=== PATIENT | female | born 2005 | race Caucasian/White ===

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

== ENCOUNTER 2024-02-11 17:30 | Emergency (ER) | payer MEDICAID, SELFPAY ==
[2024-02-11 18:00] VITALS: BP 115/74; PULSE 66; RESP 16; TEMP 37; O2SAT 99; BMI 26.4
[2024-02-11 18:10] LABS: UTC Strep Screen (Rapid) Negative (Negative)
--- NOTE | 2024-02-11 18:29 | ED_ITS ---
Discharge Plan Disposition Patient Disposition: Home, Self-Care Condition: Good Prescriptions Prescriptions: New penicillin V potassium 500 mg tablet 500 mg PO BID Qty: 20 0RF No Action norethindrone-e.estradiol-iron [Loestrin Fe 1.5/30 (28-Day)] 1.5 mg-30 mcg (21)/75 mg (7) tablet 1 tab PO DAILY Qty: 84 6RF Referrals Follow up/Referrals: Chanda Meek PA [Primary Care Provider] - See instructions Activity Restrictions/Add. Instructions Additional Instructions/Restrictions: *Monitor Temp, Over the counter Motrin or Tylenol as directed/as needed Tylenol every 4 hours and Motrin every 6 hours (as long as your family doctor has told you that you can take it) for fever or pain. and straight to ER if unable to lower temp less than 101.0 after medication given *Warm salt water gargles may help to soothe the throat *Throat Lozenges? *Warm fluids like tea with honey may help to soothe the throat? *Sleep elevated *Humidifier/Vaporizer Your throat swab was sent for culture. Those results are typically sent to your primary care. Be sure to follow up in 2-3 days with your family doctor/primary care physician if no improvement so they can review those result and treat if necessary. If you don?t have a primary care doctor, I recommend you get one but in the mean time, you will have to return to a walk in clinic Follow up IMMEDIATELY for new or worsening symptoms or no Noticeable improvement over the next 48-72 hours. 911 for difficulty breathing or swallowing Clinical Impressions Clinical Impression: Pharyngitis Instructions Patient Instructions: Penicillin V Potassium, DI for Strep Throat Print Language Print Language: Hebrew Discharge ED Provider: Milka Alejo [facility] [place] HPI General Stated complaint: sore throat Mode of Arrival: Ambulatory Source of Information: Patient Limitations: No Limitations Time Seen by Provider: 02/11/24 18:29 Description of Symptoms (Recalled from Triage Doc. by RN): PATIENT C/O SORE, RED THROAT WITH WHITE PATCHES SINCE YESTERDAY HEENT Symptoms (Recalled from RN notes): Yes Resp Symptoms (Recalled from RN notes): No Skin Symptoms (Recalled from RN notes): No MS Symptoms (Recalled from RN notes): No Functional Status (Recalled from RN notes): WNL History of Present Illness Provider Complaint: Patient states that she started yesterday with sore throat and noticed that she has white patchy areas on her right side of her throat like she gets with strep throat Related Data Previous Rx's ?Medication ?Instructions ?Recorded norethindrone 1.5 mg-ethinyl 1 tab PO DAILY #84 tabs 08/15/23 estradiol 30 mcg(21)/iron 75 mg(7) tablet (Loestrin Fe 1.5/30 (28-Day)) penicillin V potassium 500 mg 500 mg PO BID #20 tabs 02/11/24 tablet Allergies Allergy/AdvReac Type Severity Reaction Status Date / Time No Known Allergies Allergy Verified 09/07/23 14:05 Worker's Comp Is this a Worker's Comp case?: No [facility] Disclaimer: The information contained in this section may have been updated after the patient was seen, as this information can be updated by other users. Medical History (Updated 02/11/24 @ 18:34 by Milka Alejo APRN) Depression Asthma Gastroesophageal reflux disease Anxiety Surgical History History of surgery on arm History of placement of ear tubes Hx of adenoidectomy Hx of eye surgery Family History , [employer]) No significant family history Social History , [employer]) Smoking Status: Never smoker alcohol intake: never substance use type: denies use current occupational status: employed and student household members: family housing: house ROS Obtained: Yes All systems reviewed & no additional complaints except as documented and Yes Systems reviewed as appropriate & no additional complaints except as documented Constitutional Constitutional: Reports system reviewed and no additional complaints, except as documented and Reports as per HPI ENT Ears, Nose, Mouth, and Throat: Reports system reviewed and no additional complaints, except as documented, Reports as per HPI and Reports sore throat Cardiovascular Cardiovascular: Reports system reviewed and no additional complaints, except as documented and Reports as per HPI Respiratory Respiratory: Reports system reviewed and no additional complaints, except as documented and Reports as per HPI Gastrointestinal Gastrointestingal: Reports system reviewed and no additional complaints, except as documented and as per HPI Physical Exam General General appearance: alert and in no apparent distress ENT ENT exam: Present mucous membranes moist Expanded ENT Exam Nose exam: Absent sinus tenderness Throat exam: Present tonsillar erythema and tonsillar exudate Respiratory Respiratory exam: Present normal lung sounds bilaterally; Absent respiratory distress or wheezes Cardiovascular Cardiovascular exam: Present regular rate, normal rhythm and normal heart sounds Neurological Exam Neurological exam: Present alert, oriented X3 and normal gait Medical Decision Making Medical Records Screening: Per USPSTF and CDC recommendations, given the prevalence of disease in our region, it is our hospital?s policy to screen for HIV and viral Hepatitis for all patients aged 18 and over and those with ongoing risk factors. El Inquiry Pt receiving controlled substance: No El was queried for this patient: No Vital Signs: 02/11/24 18:00 Temperature 98.6 F Temperature Source Oral Pulse Rate [Left Brachial] 66 Respiratory Rate 16 Blood Pressure [Left Arm] 115/74 Blood Pressure Mean [Left Arm] 87 Blood Pressure Source [Left Arm] Automatic Cuff Blood Pressure Position [Left Arm] Sitting 02 Sat by Pulse Oximetry 99 Oxygen Delivery Method Room Air Lab Data Lab results reviewed: Yes I reviewed the patient's lab results. Lab Results 02/11/24 18:00: Strep Scn Rapid Clinic Negative Orders (Tests/Meds): ORDERS Category Date Time Status Strep Screen Confirmation Stat Micro 02/11/24 18:00 Received
[2024-02-11 18:39] VITALS: BP 115/74; PULSE 66; RESP 16; TEMP 37; O2SAT 99
== END 2024-02-11 18:41 | disposition home or self-care (01) ==
PROVIDERS: Emergency Provider Nurse Practitioner; PCP Physician Assistant
DX: J02.9 Acute pharyngitis, unspecified (principal)
CPT/HCPCS: 87880; 99212; G0381

== ENCOUNTER 2024-03-16 08:47 | Emergency (ER) | payer MEDICAID, SELFPAY ==
[2024-03-16 09:30] VITALS: BP 104/62; PULSE 119; RESP 16; TEMP 38.1; O2SAT 99; BMI 26.6
[2024-03-16 09:56] LABS: UTC Strep Screen (Rapid) Negative (Negative)
[2024-03-16 09:57] LABS: UTC Influenza A Antigen Negative (Negative); UTC Influenza B Antigen Negative (Negative)
--- NOTE | 2024-03-16 09:57 | ED_ITS ---
Discharge Plan Disposition Patient Disposition: Home, Self-Care Condition: Good Prescriptions Prescriptions: No Action norethindrone-e.estradiol-iron [Loestrin Fe 1.5/30 (28-Day)] 1.5 mg-30 mcg (21)/75 mg (7) tablet 1 tab PO DAILY Qty: 84 6RF Referrals Follow up/Referrals: Chanda Meek PA [Primary Care Provider] - See instructions Activity Restrictions/Add. Instructions Additional Instructions/Restrictions: *Monitor Temp, Over the counter Motrin or Tylenol as directed/as needed Tylenol every 4 hours and Motrin every 6 hours (as long as your family doctor has told you that you can take it) for fever or pain. and straight to ER if unable to lower temp less than 101.0 after medication given *Warm salt water gargles may help to soothe the throat *Throat Lozenges? *Warm fluids like tea with honey may help to soothe the throat? *Sleep elevated *Humidifier/Vaporizer *Your throat swab was sent for culture. Those results are typically sent to your primary care. Be sure to follow up in 2-3 days with your family doctor/primary care physician if no improvement so they can review those result and treat if necessary. If you don?t have a primary care doctor, I recommend you get one but in the mean time, you will have to return to a walk in clinic Follow up IMMEDIATELY for new or worsening symptoms or no Noticeable improvement over the next 48-72 hours. 911 for difficulty breathing or swallowing You were tested for today for Mini Panel which includes COVID19, Influenza A & B, RhinoVirus and RSV your test result should be back later today, you may view your results on the [facility] Response [facility] Portal Clinical Impressions Clinical Impression: Viral syndrome Stand Alone Forms Stand Alone Forms: Work/School Release Instructions Patient Instructions: DI for Viral Syndrome Print Language Print Language: Romanian Discharge ED Provider: Milka Alejo [facility] HPI General Stated complaint: fever, headache Mode of Arrival: Ambulatory Source of Information: Patient Limitations: No Limitations Time Seen by Provider: 03/16/24 09:57 Description of Symptoms (Recalled from Triage Doc. 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 States that she started feeling bad yesterday with sore throat, body aches, chills, and over all not feeling well States that there is alot going around in the daycare and she wanted to come in and get checked Related Data Previous Rx's ?Medication ?Instructions ?Recorded norethindrone 1.5 mg-ethinyl 1 tab PO DAILY #84 tabs 08/15/23 estradiol 30 mcg(21)/iron 75 mg(7) tablet (Loestrin Fe 1.5/30 (28-Day)) Allergies Allergy/AdvReac Type Severity Reaction Status Date / Time No Known Allergies Allergy Verified 09/07/23 14:05 Worker's Comp Is this a Worker's Comp case?: No [facility]SH [facility] Disclaimer: The information contained in this section may have been updated after the patient was seen, as this information can be updated by other users. Medical History (Updated 03/16/24 @ 10:01 by Milka Alejo APRN) Depression Asthma Gastroesophageal reflux disease Anxiety Surgical History History of surgery on arm History of placement of ear tubes Hx of adenoidectomy Hx of eye surgery Family History , STREET LIGHT INSPECTOR) No significant family history Social History , STREET LIGHT INSPECTOR) Smoking Status: Never smoker alcohol intake: never substance use type: denies use current occupational status: employed and student Travel in the last 8 weeks: None household members: family housing: house Have you lived/traveled outside US in past 30 days?: No Contact w/someone who lives/traveled outside US past 30 days?: No Exposure to someone with infectious disease in past 14 days?: No Do you have a fever (greater than 100.4 F or 38 C)?: No Have you tested positive for COVID-19: No Exposed to someone with COVID-19 in past 14 days?: No Do you have a sore throat?: No Do you have a cough?: No Do you have any weakness?: No Do you have any diarrhea?: No Are you experiencing any unusual bleeding?: No Do you have any muscle aches/pain?: No Do you have any abdominal pain?: No Are you experiencing loss of taste or smell?: No ROS Obtained: Yes All systems reviewed & no additional complaints except as documented and Yes Systems reviewed as appropriate & no additional complaints except as documented Constitutional Constitutional: Reports system reviewed and no additional complaints, except as documented, Reports as per HPI, Reports body ache, Reports chills, Reports fever(s) and Reports headache(s) ENT Ears, Nose, Mouth, and Throat: Reports system reviewed and no additional complaints, except as documented, Reports as per HPI, Reports headache(s), Reports nasal congestion, Reports nasal discharge and Reports sore throat Cardiovascular Cardiovascular: Reports system reviewed and no additional complaints, except as documented and Reports as per HPI Respiratory Respiratory: Reports system reviewed and no additional complaints, except as documented and Reports as per HPI Gastrointestinal Gastrointestingal: Reports system reviewed and no additional complaints, except as documented and as per HPI Genitourinary Female Genitourinary: Reports system reviewed and no additional complaints, except as documented and Reports as per HPI Neurologic Neurologic: Reports headache(s) Physical Exam General General appearance: alert and in no apparent distress ENT ENT exam: Present mucous membranes moist and TM's normal bilaterally Expanded ENT Exam Nose exam: Present other (reports clear drainage) Throat exam: Present other (mild pharyngeal erythema noted) Respiratory Respiratory exam: Present normal lung sounds bilaterally; Absent respiratory distress or wheezes Cardiovascular Cardiovascular exam: Present regular rate, normal rhythm and normal heart sounds Abdominal Exam Abdominal exam: Present soft and normal bowel sounds; Absent distention or tenderness Neurological Exam Neurological exam: Present alert, oriented X3 and normal gait Medical Decision Making Medical Records Screening: Per USPSTF and CDC recommendations, given the prevalence of disease in our region, it is our hospital?s policy to screen for HIV and viral Hepatitis for all patients aged 18 and over and those with ongoing risk factors. El Inquiry Pt receiving controlled substance: No El was queried for this patient: No Vital Signs: 03/16/24 09:30 Temperature 100.6 F H Temperature Source Oral Pulse Rate [Left Brachial] 119 H Respiratory Rate 16 Blood Pressure [Left Arm] 104/62 L Blood Pressure Mean [Left Arm] 76 Blood Pressure Source [Left Arm] Automatic Cuff Blood Pressure Position [Left Arm] Sitting 02 Sat by Pulse Oximetry 99 Oxygen Delivery Method Room Air Lab Data Lab results reviewed: Yes I reviewed the patient's lab results. Lab Results 03/16/24 09:55: Strep Scn Rapid Clinic Negative Orders (Tests/Meds): ORDERS Category Date Time Status Mini Respiratory Panel Stat Lab 03/16/24 09:55 Ordered
[2024-03-16 10:03] VITALS: BP 104/62; PULSE 119; RESP 16; TEMP 38.1; O2SAT 99
[2024-03-16 10:29] LABS: Coronavirus 19, PCR Not Detected (NotDetected); Human Rhinovirus Not Detected (NotDetected); Influenza A, PCR Not Detected (NotDetected); Influenza B, PCR Not Detected (NotDetected); Respiratory Syncytial Virus Not Detected (NotDetected)
== END 2024-03-16 10:06 | disposition home or self-care (01) ==
PROVIDERS: Emergency Provider Nurse Practitioner; PCP Physician Assistant
DX: B34.9 Viral infection, unspecified (principal); R50.9 Fever, unspecified; R11.0 Nausea; R07.0 Pain in throat; R51.9 Headache, unspecified; R09.81 Nasal congestion
CPT/HCPCS: 87631; 87804; 87880; 99212; G0381

== ENCOUNTER 2024-06-25 13:22 | Outpatient (CLI) | payer BC, SELFPAY ==
[2024-06-25 15:31] LABS: HCG,Quantitative 244 mIU/ml (0-5.42)
[2024-06-26 04:26] LABS: Progesterone 24.3 ng/mL (.)
== END 2024-06-25 23:59 | disposition home or self-care (01) ==
LOC: LAB 13:23
PROVIDERS: Visit Provider Obstetrics & Gynecology
DX: Z32.01 Encounter for pregnancy test, result positive (principal)
CPT/HCPCS: 36415; 84144; 84702

== ENCOUNTER 2024-07-22 15:13 | Outpatient (CLI) | payer BC, SELFPAY ==
[2024-07-22 16:05] LABS: Basophils % 0.3 % (0.1-2.0); Eosinophils % 0.3 % (0.1-12.0); Hematocrit 37.3 % (37.0-47.0); Hemoglobin 12.9 g/dL (12.2-16.2); Immature Granulocytes # 0.02 10^3uL; Immature Granulocytes % 0.3 %; Lymphocytes # 1.7 K/mm3 (0.7-4.5); Lymphocytes % 22.2 % (10-50); Mean Corpuscular HGB Conc 34.6 g/dL (31.8-35.4); Mean Corpuscular Hemoglobin 28.9 pg (27.0-31.2); Mean Corpuscular Volume 83.4 fl (81-99); Mean Platelet Volume 8.6 fl (7.4-10.4); Monocytes # 0.4 K/mm3 (0.1-1.0); Monocytes % 5.7 % (1.7-9.3); Neutrophils # 5.6 K/mm3 (1.8-7.8); Neutrophils % 71.2 % (37.0-80.0); Nucleated Red Blood Cells # 0 10^3/uL; Nucleated Red Blood Cells % 0 %; Platelet Count 275 K/mm3 (142-424); Red Blood Count 4.47 M/mm3 (4.20-5.40); Red Cell Distribution Width 12.2 % (11.5-17.5); Red Cell Distribution Width-SD 37.1 fL; White Blood Count 7.8 K/mm3 (4.5-13.0)
[2024-07-22 19:56] LABS: HIV Combo NEGATIVE (Negative)
[2024-07-22 20:05] LABS: Hepatitis C Ab Qual. W/ RFX NEGATIVE (Negative)
[2024-07-23 00:24] LABS: RPR W/RFX Titers Nonreactive (Nonreactive)
[2024-07-23 05:08] LABS: Hepatitis B Surface Antigen Negative (Negative)
[2024-07-24 06:10] LABS: Neisseria gonorrhoeae, NAA Negative (Negative)
== END 2024-07-22 23:59 | disposition home or self-care (01) ==
LOC: LAB 15:14
PROVIDERS: Visit Provider Obstetrics & Gynecology
DX: Z34.01 Encounter for supervision of normal first pregnancy, first trimester (principal); Z3A.08 8 weeks gestation of pregnancy
CPT/HCPCS: 36415; 85025; 86592; 86762; 86803; 86850; 87340; 87389; 87491; 87591

== ENCOUNTER 2024-10-13 14:47 | Outpatient (CLI) | payer MEDICAID, SELFPAY ==
--- OUTSIDE RECORDS SUMMARY | 2024-10-13 14:49 | XMS_ITS | Encounter Summary ---
Author Organization Healthcare Address [address] [place] [address] Care Team Providers Care Belt Measurer Name Role Phone Chanda Meek Primary Care Provider [phone] Reason for Visit * Reason Comments Med Refill Encounter Details Date Type Department Care Team (Late st Contact Info) Description 09/02/2021 Refill [facility] Pediatric [facility] [address] [place] [address] Twila Obregon MD [address] [facility] [address] [place] [address] Social History Tobacco Use Types Packs/Day Years Used Date Smoking Tobacco: Never Smokeless Tobacco: Never Alcohol Use Standard Drinks/Week Comments No 0 (1 standard drink = 0.6 oz pure alcohol) Alcoholic Drinks/day: Never Drank Alcohol Comments Unknown Sex and Gender Information Value Date Recorded Sex Assigned at Not on file Legal Sex Female 6:34 PM EDT Gender Identity Not on file Sexual Orientation Not on file COVID-19 Exposure Response Date Recorded In the last 10 days, have yo u been in contact with someone who was confirmed or suspected to have Coronavirus/COVID-19? No / Unsure 08/22/2021 3:20 PM EDT documented as of this encounter Plan of Treatment Not on file documented as of this encounter Visit Diagnoses Not on filedocumented in this encounter Additional Health Concerns Assessment Noted Time A fall risk assessment has been complete d for the patient 08/22/2021 3:25 PM EDT documented as of this encounter Care Teams Belt Measurer Relationship Specialty Start Date End Date Chanda Meek PA [address] [place] [address] PCP - General 05/07/21 documented as of this encounter
--- OUTSIDE RECORDS SUMMARY | 2024-10-13 14:49 | XMS_ITS | Encounter Summary ---
Author Organization Healthcare Address [address] [id number] Care Team Providers Care Market Research Specialist Name Role Phone Chanda Meek Primary Care Provider [phone] Reason for Visit * Reason Comments Med Refill Encounter Details Date Type Department Care Team (Late st Contact Info) Description 09/05/2021 Refill [place] [facility] [address] [place] [address] Twila Obregon MD [address] [facility] [address] [place] [address] Social History Tobacco Use Types [...] documented as of this encounter Care Teams Market Research Specialist Relationship Specialty Start Date End Date Chanda Meek PA [address] [place], [place] [id number] PCP - General 05/07/21 documented as of this encounter
--- OUTSIDE RECORDS SUMMARY | 2024-10-13 14:49 | XMS_ITS | Encounter Summary ---
Author Organization [facility] Address [address] [id number] Care Team Providers Care Manager Beauty Name Role Phone Cherie Clarke DO Primary Care Provider [phone] Chanda Meek Primary Care Provider [phone] Reason for Referral * Consultation (Routine) - Closed Specialty Diagnoses / Procedures Referred By Contact Referred To Contact Pediatric Gastroenterology Diagnoses Nausea and vomiting, intractability of vomiting not specified, unspecified vomiting type Yovanny Lin APRN [address] [place] [address] Phone: tel:[phone] fax:[phone] Referral ID Status Reason Start Date Expiration Date V isits Requested Visits Authorized [id number] Closed Specialty Services Required 03/13/2021 09/12/2022 1 1 Encounter Details Date Type Department Care Team (Latest Contact Info) Description 03/12/2021 Community [facility] [address] [place] [address] Yovanny Lin APRN [address] [place] [address] Nausea and vomiting, intractability of vomiting not specified, unspecified vomiting type (Primary Dx) Social History Tobacco Use Types Packs/Day Years Used Date Smoking Tobacco: Never Alcohol Use Standard Drinks/Week Comments No 0 (1 standard drink = 0.6 oz pure alcohol) Alcoholic Drinks/day: Never Drank Alcohol Comments Unknown Sex and Gender Information Value Date Recorded Sex Assigned at Not on file Legal Sex Female 6:34 PM EDT Gender Identity Not on file Sexual Orientation Not on file documented as of this encounter Plan of Treatment Scheduled Referrals Name Type Priority Associated Diagnoses Orde r Schedule Ambulatory referral to Pediatric Gastroenterology Outpatient Referral Routine Nausea and vomiting, intractability of vomiting not specified, unspecified vomiting type Expected: 03/13/2021 (Approximate), Expires: 06/11/2021 documented as of this encounter Visit Diagnoses Diagnosis Nausea and vomiting, intractability of vomiting not specified, unspecified vomiting type- Primary documented in this encounter Care Teams Manager Beauty Relationship Specialty Start Date End Date Cherie Clarke DO [address] [facility] [address] [place], [place] [id number] PCP - General 07/28/20 05/06/21 Chanda Meek PA [address] [place] [address] PCP - General 05/07/21 documented as of this encounter
--- OUTSIDE RECORDS SUMMARY | 2024-10-13 14:49 | XMS_ITS | Encounter Summary ---
Author Organization Healthcare Address [address] [id number] Care Team Providers Care Black Top Spreader Machine Operator Name Role Phone Chanda Meek Primary Care Provider [phone] Reason for Visit * Reason Comments Med Refill Encounter Details Date Type Department Care Team (Late st Contact Info) Description 09/09/2022 Refill [place] [facility] Specialty [address], [address] [place] [address] Twila Obregon MD [address] [facility] [address] [place] [address] Social History Tobacco Use Types Packs/Day Years Used Date Smoking Tobacco: Never Smokeless Tobacco: Never Alcohol Use Standard Drinks/Week Comments No 0 (1 standard drink = 0.6 oz pure alcohol) Alcoholic Drinks/day: Never Drank Alcohol Comments No Sex and Gender Information Value Date Recorded Sex Assigned at Not on file Legal Sex Female 6:34 PM EDT Gender Identity Not on file Sexual Orientation Not on file documented as of this encounter Miscellaneous Notes * Telephone Encounter - Dewayne Lopez - 09/09/2022 1:59 PM EDT Refill request does not meet protocol. Sending to clinic for review. Additional info: Appointment compliance - PEDIATRIC Patient hasn't been seen in clinic in > 15 months. Please review for scheduling and if refills are appropriate. documented in this encounter Plan of Treatment Not on file documented as of this encounter Visit Diagnoses Not on filedocumented in this encounter Additional Health Concerns Assessment Noted Time A fall risk assessment has been complete d for the patient 08/22/2021 3:25 PM EDT documented as of this encounter Care Teams Black Top Spreader Machine Operator Relationship Specialty Start Date End Date Chanda Meek PA [address] [place] [address] PCP - General 05/07/21 documented as of this encounter
--- OUTSIDE RECORDS SUMMARY | 2024-10-13 14:49 | XMS_ITS | Clinical Summary ---
Author Organization Healthcare Address [address] [place] [address] Care Team Providers Care Paint Line Production Supervisor Name Role Phone Destinee Meekie Elisa OBRIEN Primary Care Provider [phone] Allergies No known active allergies Medications Melatonin 3 MG capsule TAKE 1 CAPSULE AT BEDTIME NEEDED. 9 Active Aviane 0.1-20 MG-MCG tablet Take 1 tablet by mouth 1 (one) time each day. 1 Active omeprazole (PriLOSEC) [address] capsule TAKE 1 CAPSULE BY MOUTH ONCE DAILY BEFORE BREAKFAST 90 capsule 1 2 Active Active Problems No known active problems Family History Medical History Relation Name Comments Thyroid disease Mother Gastritis Sister sees Dr. Cooper Relation Name Status Comments Mother Sister Social History Tobacco Use Types Packs/Day Years [...] on file Sexual Orientation Not on file Last Filed Vital Signs Vital Sign Reading Time Taken Comments Blood Pressure 106/71 11/13/2021 11:10 AM EDT Pulse 88 11/13/2021 11:10 AM EDT Temperature 36.6 C (97.8 F) 11/13/2021 10:40 AM EDT Respiratory Rate 19 11/13/2021 11:1 0 AM EDT Oxygen Saturation 98% 11/13/2021 11: 10 AM EDT Inhaled Oxygen Concentration - - Weight 62.1 kg (136 lb 14.5 oz) 11/13/2021 9:57 AM EDT Height 166 cm (5' 5.35 ) 11/13/2021 9:57 AM EDT Body Mass Index 22.54 11/13/2021 9:57 AM EDT Plan of Treatment Health Maintenance Due Date Last Done Comments [facility]-Depression Screening 2004 [facility]-HIV Screening 2004 [facility]-Hepatitis C Screening 2004 [facility]-Infant/Child/Adol SDOH Screenings 2004 [facility]- SDOH Screenings 2022 [facility]-Adult SDOH Screenings 2022 [id number] Vaccine ( season) 2023 [facility]-Influenza Vaccine (#1) 11/15/202412/14, 01/08/2008, 01/12/2007 [facility]-DTaP,Tdap,and Td Vaccines (2 - Td or Tdap) 04/25/2025 04/25/2015 [facility]-Zoster Vaccines (1 of 2) 2054 06/07/2013, 04/18/2005 [facility]-HIB Vaccines Completed 04/18/2005, 11/2004, 2004 [facility]-Hepatitis B Vaccines Completed 006, 2004, 2004 [facility]-IPV Vaccines Completed 04/18/2008, 12/2004, 2004, Additional history exists [facility]-Varicella Vaccines Completed 06/07/2013, 2005 [facility]-Hepatitis A Vaccines Completed 10/17/2017, 03/18 HPV Vaccines Completed 04/30/2019, 09/28/2018 [facility]-Pneumococcal Vaccine: Pediatrics (0 to 5 Years) and At-Risk Patients (6 to 49 Years) Aged Out No longer eligible based on patient's age to complete this topic [facility]-Rotavirus Vaccines Aged Out No lo nger eligible based on patient's age to complete this topic Insurance [employer] MEDICA[employer] Care Teams Paint Line Production Supervisor Relationship Specialty Start Date End Date Chanda Meek PA [address] [place] [address] PCP - General 05/07/21
--- NOTE | 2024-10-13 15:06 | US_ITS ---
PROCEDURE: US OB /MATERNAL DETAIL CLINICAL INDICATION: needs for 20 week anatomy scan COMPARISON: No exams were available for comparison FINDINGS: Transabdominal sonographic images of the pelvis were obtained. From her established due date she is 20 weeks 1 day. Single viable intrauterine gestation. Breech position. Placenta: Lateral posteriorplacenta grade 1. There is an average amount of fluid. The cervix appears satisfactory. Closed and measuring 3.23 cm cm in length. Complete survey performed and was unremarkable on the submitted images as in PACS. No discrete anomalies identified on survey imaging by technologist. Active fetus. Three-vessel cord with satisfactory umbilical cord insertion. 4- chamber heart noted. Situs, aortic arch, LVOT, RVOT, three-vessel view appear normal. Survey of brain & ventricles Unremarkable. Cerebellum, thalamus, choroid plexus, cisterna magna appear normal. Face and neck survey unremarkable. Profile, nasion, lips and nose appeared normal. Diaphragm and chest views unremarkable. Abdomen: Both kidneys noted and unremarkable. Stomach and bladder noted and satisfactory. Spine: Survey of the spine satisfactory with no anomalies identified nor imaged. Cervical, thoracic, lower spine appear normal. Both arms and legs noted. Amniotic Fluid: Adequate. MVP 3.96 cm Measurements: Average ultrasound age 20weeks 2days. Estimated due date by ultrasound age 1202/28/2025. Estimated weight 350g BPD = 20weeks 1day HC = 19weeks 6days AC = 20weeks 6days FL = 20weeks 1day Growth Percentile= 60 Heart Rate = 161bpm Cerebellum = 20weeks Humerus = 20weeks 3days HC/AC is 1.11 FL/BPD is 0.7 FL/AC is 0.21 IMPRESSION: 1. Viable fetus in the breech presentation with a lateral posterior placenta grade 1. 2. The fluid is within normal limits with an MVP 3.96 cm. 3. Anatomical scan appears normal. 4. biometry is consistent with the dates. Dictated by: William Mahmood MD 10/13/2024 16:21 William Mahmood MD in [place] 10/13/2024 16:21
== END 2024-10-13 23:59 | disposition home or self-care (01) ==
LOC: RAD 14:48
PROVIDERS: PCP Physician Assistant; Visit Provider Obstetrics & Gynecology
DX: O32.1XX0 Maternal care for breech presentation, not applicable or unspecified (principal); Z36.3 Encounter for antenatal screening for malformations; Z3A.20 20 weeks gestation of pregnancy
CPT/HCPCS: 76811

== ENCOUNTER 2024-12-03 08:51 | Outpatient (CLI) | payer MEDICAID, SELFPAY ==
--- OUTSIDE RECORDS SUMMARY | 2024-12-03 08:54 | XMS_ITS | Encounter Summary ---
Author Organization Healthcare Address [address] [id number] Care Team Providers Care Vp Compliance Name Role Phone Chanda Meek Primary Care Provider [phone] Reason for Visit * Reason Comments Med Refill Encounter Details Date Type Department Care Team (Late st Contact Info) Description 09/09/2022 Refill [place] [facility] [address], [address] [place] [address] Twila Obregon MD [address] [facility] [address] [place] [address] Social History Tobacco Use Types [...] documented as of this encounter Care Teams Vp Compliance Relationship Specialty Start Date End Date Chanda Meek PA [address] [place] [address] PCP - General 05/07/21 documented as of this encounter
--- OUTSIDE RECORDS SUMMARY | 2024-12-03 08:54 | XMS_ITS | Encounter Summary ---
Author Organization [facility] Address [address] [id number] Care Team Providers Care Magisterial District Judge Name Role Phone Cherie Clarke DO Primary Care Provider [phone] Chanda Meek Primary Care Provider [phone] Reason for Referral * Consultation (Routine) - Closed Specialty Diagnoses / Procedures Referred By Contact Referred To Contact Pediatric Gastroenterology Diagnoses Nausea and vomiting, intractability of vomiting not specified, unspecified vomiting type Yovanny Lin APRN [address] [place] [address] Phone: tel:[phone] fax:[phone] Referral ID Status Reason Start Date Expiration Date V isits Requested Visits Authorized [id number] Closed Specialty Services Required 03/13/2021 09/12/2022 1 1 Encounter Details Date Type Department Care Team (Latest Contact Info) Description 03/12/2021 Community [facility] [address] [place] [address] Yovanny Lin APRN [address] [place] [address] Nausea and vomiting, intractability of vomiting not [...] Primary documented in this encounter Care Teams Magisterial District Judge Relationship Specialty Start Date End Date Cherie Clarke DO [address] [facility] [address] [place], [place] [id number] PCP - General 07/28/20 05/06/21 Chanda Meek PA [address] [place] [address] PCP - General 05/07/21 documented as of this encounter
--- OUTSIDE RECORDS SUMMARY | 2024-12-03 08:54 | XMS_ITS | Encounter Summary ---
Author Organization Healthcare Address [address] [place] [address] Care Team Providers Care Head Start Teacher Name Role Phone Chanda Meek Primary Care Provider [phone] Reason for Visit * Reason Comments Med Refill Encounter Details Date Type Department Care Team (Late st Contact Info) Description 09/02/2021 Refill [facility] Pediatric [facility] [address] [place] [address] Twila Obregon MD [address] [facility] [address] [place] [address] Social History Tobacco Use Types [...] documented as of this encounter Care Teams Head Start Teacher Relationship Specialty Start Date End Date Chanda Meek PA [address] [place] [address] PCP - General 05/07/21 documented as of this encounter
--- OUTSIDE RECORDS SUMMARY | 2024-12-03 08:54 | XMS_ITS | Encounter Summary ---
Author Organization Healthcare Address [address] [id number] Care Team Providers Care Cannery Worker Name Role Phone Chanda Meek Primary Care Provider [phone] Reason for Visit * Reason Comments Med Refill Encounter Details Date Type Department Care Team (Late st Contact Info) Description 09/05/2021 Refill [place] [facility]ty [address] [place] [address] Twila Obregon MD [address] [facility] [address] [place] [address] Social History Tobacco Use Types [...] documented as of this encounter Care Teams Cannery Worker Relationship Specialty Start Date End Date Chanda Meek PA [address] [place], [place] [id number] PCP - General 05/07/21 documented as of this encounter
--- OUTSIDE RECORDS SUMMARY | 2024-12-03 08:54 | XMS_ITS | Clinical Summary ---
Author Organization Healthcare Address [address] [place] [address] Care Team Providers Care Telegraph Equipment Maintainer Name Role Phone Destinee Meekie Elisa OBRIEN Primary Care Provider [phone] Allergies No known active allergies Medications Melatonin [...] Date Last Done Comments [facility]-Depression Screening 2004 [facility]-/Child/Adol SDOH Screenings 2004 [facility]- SDOH Screenings 2022 [facility]-Adult SDOH Screenings 2022 [id number] Vaccine (1 - season) 2024 [facility]-Influenza Vaccine (#1) 11/15/202412/14, 01/08/2008, 01/12/2007 [facility]-DTaP,Tdap,and [...] patient's age to complete this topic Insurance [facility] MEDICAID Care Teams Telegraph Equipment Maintainer Relationship Specialty Start Date End Date Chanda Meek PA [address] [place] [address] PCP - General 05/07/21
[2024-12-03 10:13] LABS: Hematocrit 32.9 % (37.0-47.0); Hemoglobin 11.2 g/dL (12.2-16.2); Immature Granulocytes % 0.4 %; Mean Corpuscular HGB Conc 34.0 g/dL (31.8-35.4); Mean Corpuscular Hemoglobin 30.5 pg (27.0-31.2); Mean Corpuscular Volume 89.6 fl (81-99); Nucleated Red Blood Cells % 0 %; Platelet Count 219 K/mm3 (142-424); Red Blood Count 3.67 M/mm3 (4.20-5.40); Red Cell Distribution Width-SD 41.4 fL; White Blood Count 7.8 K/mm3 (4.5-13.0)
[2024-12-03 10:34] LABS: Glucose 1 Hour 125 mg/dL (74-100)
[2024-12-04 08:13] LABS: RPR W/RFX Titers Nonreactive (Nonreactive)
== END 2024-12-03 23:59 | disposition home or self-care (01) ==
LOC: LAB 08:52
PROVIDERS: PCP Physician Assistant; Visit Provider Obstetrics & Gynecology
DX: Z34.92 Encounter for supervision of normal pregnancy, unspecified, second trimester (principal)
CPT/HCPCS: 36415; 82947; 85025; 86592

== ENCOUNTER 2025-01-07 14:18 | Outpatient (CLI) | payer MEDICAID, SELFPAY ==
--- OUTSIDE RECORDS SUMMARY | 2025-01-07 14:20 | XMS_ITS | Encounter Summary ---
Author Organization [facility] Address [address] [id number] Care Team Providers Care Fittings Finisher Name Role Phone Cherie Clarke DO Primary Care Provider [phone] Chanda Meek Primary Care Provider [phone] Reason for Referral * Consultation (Routine) - Closed Specialty Diagnoses / Procedures Referred By Contact Referred To Contact Pediatric Gastroenterology Diagnoses Nausea and vomiting, intractability of vomiting not specified, unspecified vomiting type Yovanny Lin APRN [address] [place] [address] Phone: tel:[phone] fax:[phone] Referral ID Status Reason Start Date Expiration Date V isits Requested Visits Authorized [id number] Closed Specialty Services Required 03/13/2021 09/12/2022 1 1 Encounter Details Date Type Department Care Team (Latest Contact Info) Description 03/12/2021 Community [facility] [address] [place] [address] Yovanny Lin APRN [address] [place] [address] Nausea and vomiting, intractability of vomiting not [...] Primary documented in this encounter Care Teams Fittings Finisher Relationship Specialty Start Date End Date Cherie Clarke DO [address] [facility] [address] [place], [place] [id number] PCP - General 07/28/20 05/06/21 Chanda Meek PA [address] [place] [address] PCP - General 05/07/21 documented as of this encounter
--- OUTSIDE RECORDS SUMMARY | 2025-01-07 14:20 | XMS_ITS | Clinical Summary ---
Author Organization Healthcare Address [address] [place] [address] Care Team Providers Care Buckle Sewer Name Role Phone Destinee Meekie Elisa OBRIEN Primary Care Provider [phone] Allergies No known active allergies Medications Melatonin [...] SDOH Screenings 2022 [facility]-Adult SDOH Screenings 2022 [id number] Vaccine (1 - season) 2024 [facility]-Influenza Vaccine [...] patient's age to complete this topic Insurance [facility] MEDICAID Care Teams Buckle Sewer Relationship Specialty Start Date End Date Chanda Meek PA [address] [place] [address] PCP - General 05/07/21
--- OUTSIDE RECORDS SUMMARY | 2025-01-07 14:20 | XMS_ITS | Encounter Summary ---
Author Organization Healthcare Address [address] [id number] Care Team Providers Care Marketing Services Specialist Name Role Phone Chanda Meek Primary Care Provider [phone] Reason for Visit * Reason Comments Med Refill Encounter Details Date Type Department Care Team (Late st Contact Info) Description 09/05/2021 Refill [place] [facility] [address], [address] [place] [address] Twila Obregon MD [address] [facility] [address] [place] [address] Social History Tobacco Use Types [...] documented as of this encounter Care Teams Marketing Services Specialist Relationship Specialty Start Date End Date Chanda Meek PA [address] [place], [place] [id number] PCP - General 05/07/21 documented as of this encounter
--- OUTSIDE RECORDS SUMMARY | 2025-01-07 14:20 | XMS_ITS | Encounter Summary ---
Author Organization Healthcare Address [address] [place] [address] Care Team Providers Care Stationary Engineer Supervisor Name Role Phone Chanda Meek Primary Care Provider [phone] Reason for Visit * Reason Comments Med Refill Encounter Details Date Type Department Care Team (Late st Contact Info) Description 09/02/2021 Refill [facility] Pediatric [facility] [address] [place] [address] Twila Obregon MD [address] [facility] [address] [place] [address] Social History Tobacco Use Types [...] documented as of this encounter Care Teams Stationary Engineer Supervisor Relationship Specialty Start Date End Date Chanda Meek PA [address] [place] [address] PCP - General 05/07/21 documented as of this encounter
--- OUTSIDE RECORDS SUMMARY | 2025-01-07 14:20 | XMS_ITS | Encounter Summary ---
Author Organization Healthcare Address [address] [id number] Care Team Providers Care Sales Associate Fishing Name Role Phone Chanda Meek Primary Care Provider [phone] Reason for Visit * Reason Comments Med Refill Encounter Details Date Type Department Care Team (Late st Contact Info) Description 09/09/2022 Refill [place] [facility] [address], [address] [place] [address] Twila Obregon MD [address] [facility] [address] [place] [address] Social History Tobacco Use Types [...] documented as of this encounter Care Teams Sales Associate Fishing Relationship Specialty Start Date End Date Chanda Meek PA [address] [place] [address] PCP - General 05/07/21 documented as of this encounter
--- NOTE | 2025-01-07 14:30 | US_ITS ---
PROCEDURE: US OB BIOPHYSICAL PROFILE CLINICAL INDICATION: elevated BP COMPARISON: US US OB /MATERNAL DETAIL from 10/13/2024 FINDINGS: Transabdominal sonographic images of the uterus were obtained. From her established due date she is 32weeks 3days. The following parameters are obtained: Viable Fetus in the cephalic presentation with a posterolateral placenta grade 2. Average ultrasound age is 34weeks 0 days Estimated weight 2,234g, 4 lb 15 oz The cervix measures 3.51 cm in length. Measurements: heart Rate = 142bpm BPD = 33weeks 6days, 81 percentile HC = 34weeks 4days, 70 percentile AC = 33weeks 0 days, 65 percentile FL = 34weeks 3days, 86 percentile HC/AC is 1.07 FL/BPD is 0.8 FL/AC is 0.23 77 percentile Amniotic fluid index: 12.93cm, MVP 4.16 cm Qualitative AFV:2 Breathing movements: 2 Gross Body Movements: 2 Tone: 2 Biophysical profile score: 8 No obvious anomalies evident.Kidneys, profile, stomach, bladder, four-chamber heart, three-vessel cord appear normal. IMPRESSION: 1. Viable fetus in the cephalic presentation with a posterolateral placenta grade 2. 2. The fluid is within normal limits with an amniotic fluid index 12.93 cm, MVP 4.16 cm. 3. Biophysical profile is 8/8 with good breathing movement and movement seen. 4. Limited anatomical scan appears normal. Dictated by: William Mahmood MD 01/08/2025 09:22 William Mahmood MD in [place] 01/08/2025 09:22
== END 2025-01-07 23:59 | disposition home or self-care (01) ==
LOC: RAD 14:18
PROVIDERS: PCP Physician Assistant; Visit Provider Obstetrics & Gynecology
DX: Z34.83 Encounter for supervision of other normal pregnancy, third trimester (principal); R03.0 Elevated blood-pressure reading, without diagnosis of hypertension; Z3A.32 32 weeks gestation of pregnancy
CPT/HCPCS: 76816; 76819

== ENCOUNTER 2025-01-31 16:29 | Outpatient (CLI) | payer MEDICAID, SELFPAY ==
[2025-01-31 16:39] VITALS: BMI 30.1
[2025-01-31 16:54] VITALS: BP 140/85; PULSE 105; RESP 17; TEMP 36.6; O2SAT 97; BMI 30.1
[2025-01-31 17:15] LABS: Microscopic, Urine URINE MICROSCOPIC (MICROSCOPIC)
[2025-01-31 17:24] LABS: Bilirubin,Urine Negative (Negative); Color,Urine YELLOW (Yellow); Glucose,Urine (UA) Negative (Negative); Ketones,Urine Negative (Negative); Leukocyte Esterase,Urine 3+ (Negative); PH,Urine 6.5 (5.0-8.5); Protein,Urine Negative (Negative); Specific Gravity, Urine <= 1.005 (1.005-1.030); Urobilinogen,Urine 0.2 EU/dl (0.2)
[2025-01-31 17:24] LABS: Fetal Membrane Rupture (Rapid) Negative (Negative)
[2025-01-31 17:40] LABS: Bacteria,Urine 2+ /lpf
[2025-01-31 18:00] VITALS: BP 115/75
--- OUTSIDE RECORDS SUMMARY | 2025-02-01 00:12 | XMS_ITS | Encounter Summary ---
Author Organization [facility] Address [address] [id number] Care Team Providers Care Button Decorating Machine Operator Name Role Phone Cherie Clarke DO Primary Care Provider [phone] Chanda Meek Primary Care Provider [phone] Reason for Referral * Consultation (Routine) - Closed Specialty Diagnoses / Procedures Referred By Contact Referred To Contact Pediatric Gastroenterology Diagnoses Nausea and vomiting, intractability of vomiting not specified, unspecified vomiting type Yovanny Lin APRN [address] [place] [address] Phone: tel:[phone] fax:[phone] Referral ID Status Reason Start Date Expiration Date V isits Requested Visits Authorized [id number] Closed Specialty Services Required 03/13/2021 09/12/2022 1 1 Encounter Details Date Type Department Care Team (Latest Contact Info) Description 03/12/2021 Community [facility] [address] [place] [address] Yovanny Lin APRN [address] [place] [address] Nausea and vomiting, intractability of vomiting not [...] Primary documented in this encounter Care Teams Button Decorating Machine Operator Relationship Specialty Start Date End Date Cherie Clarke DO [address] [facility] [address] [place], [place] [id number] PCP - General 07/28/20 05/06/21 Chanda Meek PA [address] [place] [address] PCP - General 05/07/21 documented as of this encounter
--- OUTSIDE RECORDS SUMMARY | 2025-02-01 00:12 | XMS_ITS | Encounter Summary ---
Author Organization Healthcare Address [address] [id number] Care Team Providers Care Chemical Dependency Professional Name Role Phone Chanda Meek Primary Care Provider [phone] Reason for Visit * Reason Comments Med Refill Encounter Details Date Type Department Care Team (Late st Contact Info) Description 09/09/2022 Refill [facility] [facility] [address], [address] [place] [address] Twila Obregon MD [address] [facility] [address] [place] [address] Social History Tobacco Use Types [...] documented as of this encounter Care Teams Chemical Dependency Professional Relationship Specialty Start Date End Date Chanda Meek PA [address] [place] [address] PCP - General 05/07/21 documented as of this encounter
--- OUTSIDE RECORDS SUMMARY | 2025-02-01 00:13 | XMS_ITS | Clinical Summary ---
Author Organization Healthcare Address [address] [place] [address] Care Team Providers Care Plate Setter Name Role Phone Destinee Meekie Elisa OBRIEN Primary Care Provider [phone] Allergies No known active allergies Medications Melatonin [...] Date Last Done Comments [facility]-Depression Screening 2004 [facility]-Infant/Child/Adol SDOH Screenings 2004 [facility]- SDOH Screenings 2022 [facility]-Adult SDOH Screenings 2022 [id number] Vaccine (1 - 2024- season) 2024 [facility]-Influenza Vaccine (#1) 11/15/202412/14, 01/08/2008, [...] patient's age to complete this topic Insurance [facility] MEDICAID Care Teams Plate Setter Relationship Specialty Start Date End Date Chanda Meek PA [address] [place] [address] PCP - General 05/07/21
--- OUTSIDE RECORDS SUMMARY | 2025-02-01 00:13 | XMS_ITS | Encounter Summary ---
Author Organization Healthcare Address [address] [id number] Care Team Providers Care Loss Prevention Detective Name Role Phone Chanda Meek Primary Care Provider [phone] Reason for Visit * Reason Comments Med Refill Encounter Details Date Type Department Care Team (Late st Contact Info) Description 09/05/2021 Refill [place] [facility] [address], [address] [place] [address] Twila Obregon MD [address] [facility] [address] [place] [address] Social History Tobacco Use Types [...] documented as of this encounter Care Teams Loss Prevention Detective Relationship Specialty Start Date End Date Chanda Meek PA [address] [place], [place] [id number] PCP - General 05/07/21 documented as of this encounter
--- OUTSIDE RECORDS SUMMARY | 2025-02-01 00:14 | XMS_ITS | Encounter Summary ---
Author Organization Healthcare Address [address] [place] [address] Care Team Providers Care Police Inspector Name Role Phone Chanda Meek Primary Care Provider [phone] Reason for Visit * Reason Comments Med Refill Encounter Details Date Type Department Care Team (Late st Contact Info) Description 09/02/2021 Refill [facility] Pediatric [facility] [address] [place] [address] Twila Obregon MD [address] [facility] [address] [place] [address] Social History [...] documented as of this encounter Care Teams Police Inspector Relationship Specialty Start Date End Date Chanda Meek PA [address] [place] [address] PCP - General 05/07/21 documented as of this encounter
== END 2025-01-31 18:39 | disposition home or self-care (01) ==
LOC: OBOUT 16:32 → OB 16:33
PROVIDERS: PCP Physician Assistant; Visit Provider Nurse Practitioner Obstetrics & Gynecology
DX: Z34.03 Encounter for supervision of normal first pregnancy, third trimester (principal); Z3A.35 35 weeks gestation of pregnancy
CPT/HCPCS: 81001; 84112; 87086; 99213; J0696

== ENCOUNTER 2025-02-03 14:30 | Outpatient (CLI) | payer MEDICAID, SELFPAY ==
--- OUTSIDE RECORDS SUMMARY | 2025-02-04 13:39 | XMS_ITS | Encounter Summary ---
Author Organization Healthcare Address [address] [place] [address] Care Team Providers Care Outside Event Sales Specialist Name Role Phone Chanda Meek Primary Care Provider [phone] Reason for Visit * Reason Comments Med Refill Encounter Details Date Type Department Care Team (Late st Contact Info) Description 09/02/2021 Refill [facility] Pediatric [facility] [address] [place] [address] Twila Obregon MD [address] [facility] [address] [place] [address] Social History Tobacco Use Types [...] documented as of this encounter Care Teams Outside Event Sales Specialist Relationship Specialty Start Date End Date Chanda Meek PA [address] [place] [address] PCP - General 05/07/21 documented as of this encounter
--- OUTSIDE RECORDS SUMMARY | 2025-02-04 13:39 | XMS_ITS | Encounter Summary ---
Author Organization Healthcare Address [address] [id number] Care Team Providers Care Vessel Manager Name Role Phone Chanda Meek Primary Care Provider [phone] Reason for Visit * Reason Comments Med Refill Encounter Details Date Type Department Care Team (Late st Contact Info) Description 09/09/2022 Refill [place] [facility] [address], [address] [place] [address] Twila Obregon MD [address] [facility] [address] [place] [address] Social History Tobacco Use Types [...] documented as of this encounter Care Teams Vessel Manager Relationship Specialty Start Date End Date Chanda Meek PA [address] [place] [address] PCP - General 05/07/21 documented as of this encounter
--- OUTSIDE RECORDS SUMMARY | 2025-02-04 13:39 | XMS_ITS | Clinical Summary ---
Author Organization Healthcare Address [address] [place] [address] Care Team Providers Care Superintendent Electric Power Name Role Phone Destinee Meekie Elisa OBRIEN Primary Care Provider [phone] Allergies No known active allergies Medications Melatonin [...] Thyroid disease Mother Gastritis Sister sees Dr. oCoper Relation Name Status Comments Mother Sister Social [...] SDOH Screenings 2022 [facility]-Adult SDOH Screenings 2022 [id number] Vaccine (1 - 2024- season) 2024 [facility]-Influenza [...] patient's age to complete this topic Insurance [facility] MEDICAID Care Teams Superintendent Electric Power Relationship Specialty Start Date End Date Chanda Meek PA [address] [place] [address] PCP - General 05/07/21
--- OUTSIDE RECORDS SUMMARY | 2025-02-04 13:39 | XMS_ITS | Encounter Summary ---
Author Organization Healthcare Address [address] [id number] Care Team Providers Care Dowel Machine Operator Name Role Phone Chanda Meek Primary Care Provider [phone] Reason for Visit * Reason Comments Med Refill Encounter Details Date Type Department Care Team (Late st Contact Info) Description 09/05/2021 Refill [place] [facility] [address], [address] [place] [address] Twila Obregon MD [address] [facility] [address] [place] [address] Social History Tobacco Use Types [...] documented as of this encounter Care Teams Dowel Machine Operator Relationship Specialty Start Date End Date Chanda Meek PA [address] [place], [place] [address] PCP - General 05/07/21 documented as of this encounter
--- OUTSIDE RECORDS SUMMARY | 2025-02-04 13:39 | XMS_ITS | Encounter Summary ---
Author Organization [facility] Address [address] [id number] Care Team Providers Care Supervisor Paint Department Name Role Phone Cherie Clarke DO Primary Care Provider [phone] Chanda Meek Primary Care Provider [phone] Reason for Referral * Consultation (Routine) - Closed Specialty Diagnoses / Procedures Referred By Contact Referred To Contact Pediatric Gastroenterology Diagnoses Nausea and vomiting, intractability of vomiting not specified, unspecified vomiting type Yovanny Lin APRN [address] [place] [address] Phone: tel:[phone] fax:[phone] Referral ID Status Reason Start Date Expiration Date V isits Requested Visits Authorized [id number] Closed Specialty Services Required 03/13/2021 09/12/2022 1 1 Encounter Details Date Type Department Care Team (Latest Contact Info) Description 03/12/2021 Community [facility] Community Practice [address] [place] [address] Yovanny Lin APRN [address] [place] [address] Nausea and vomiting, intractability of vomiting not [...] Primary documented in this encounter Care Teams Supervisor Paint Department Relationship Specialty Start Date End Date Cherie Clarke DO 1210 [facility] [address] [place], [place] [id number] PCP - General 07/28/20 05/06/21 Chanda Meek PA [address] [place] [address] PCP - General 05/07/21 documented as of this encounter
== END 2025-02-03 23:59 | disposition home or self-care (01) ==
LOC: LAB.DROPOF 02-04 13:34
PROVIDERS: PCP Physician Assistant; Visit Provider Obstetrics & Gynecology
DX: O99.891 Other specified diseases and conditions complicating pregnancy (principal); R03.0 Elevated blood-pressure reading, without diagnosis of hypertension; Z3A.00 Weeks of gestation of pregnancy not specified
CPT/HCPCS: 86403

== ENCOUNTER 2025-02-09 14:20 | Outpatient (CLI) | payer MEDICAID, SELFPAY ==
--- OUTSIDE RECORDS SUMMARY | 2025-02-09 14:21 | XMS_ITS | Encounter Summary ---
Author Organization [facility] Address [address] [id number] Care Team Providers Care Stack Matcher Name Role Phone Cherie Clarke DO Primary Care Provider [phone] Chanda Meek Primary Care Provider [phone] Reason for Referral * Consultation (Routine) - Closed Specialty Diagnoses / Procedures Referred By Contact Referred To Contact Pediatric Gastroenterology Diagnoses Nausea and vomiting, intractability of vomiting not specified, unspecified vomiting type Yovanny Lin APRN [address] [place] [address] Phone: tel:[phone] fax:[phone] Referral ID Status Reason Start Date Expiration Date V isits Requested Visits Authorized [id number] Closed Specialty Services Required 03/13/2021 09/12/2022 1 1 Encounter Details Date Type Department Care Team (Latest Contact Info) Description 03/12/2021 Community [facility] Community Practice [address] [place] [address] Yovanny Lin APRN [address] [place] [address] Nausea and vomiting, intractability of vomiting not [...] Primary documented in this encounter Care Teams Stack Matcher Relationship Specialty Start Date End Date Cherie Clarke DO 1210 [facility] [address] [place], [place] [address] PCP - General 07/28/20 05/06/21 Chanda Meek PA [address] [place] [address] PCP - General 05/07/21 documented as of this encounter
--- OUTSIDE RECORDS SUMMARY | 2025-02-09 14:21 | XMS_ITS | Encounter Summary ---
Author Organization Healthcare Address [address] [id number] Care Team Providers Care Door Cutter Name Role Phone Chanda Meek Primary Care Provider [phone] Reason for Visit * Reason Comments Med Refill Encounter Details Date Type Department Care Team (Late st Contact Info) Description 09/09/2022 Refill [facility] [address], [address] [place] [address] Twila Obregon MD [address] [facility] [address] [place] [address] Social History Tobacco Use Types [...] documented as of this encounter Care Teams Door Cutter Relationship Specialty Start Date End Date Chanda Meek PA [address] [place] [address] PCP - General 05/07/21 documented as of this encounter
--- OUTSIDE RECORDS SUMMARY | 2025-02-09 14:22 | XMS_ITS | Encounter Summary ---
Author Organization Healthcare Address [address] [place] [address] Care Team Providers Care Knit Goods Cutter Hand Name Role Phone Chanda Meek Primary Care Provider Reason for Visit * Reason Comments Med Refill Encounter Details Date Type Department Care Team (Late st Contact Info) Description 09/02/2021 Refill [facility] Pediatric [facility] [address] [place] [address] Twila Obregon MD [address] [facility] [address] [place] [address] Social History Tobacco Use Types [...] documented as of this encounter Care Teams Knit Goods Cutter Hand Relationship Specialty Start Date End Date Chanda Meek PA [address] [place] [address] PCP - General 05/07/21 documented as of this encounter
--- OUTSIDE RECORDS SUMMARY | 2025-02-09 14:22 | XMS_ITS | Encounter Summary ---
Author Organization Healthcare Address [address] [id number] Care Team Providers Care Automatic Screwmaker Name Role Phone Chanda Meek Primary Care Provider [phone] Reason for Visit * Reason Comments Med Refill Encounter Details Date Type Department Care Team (Late st Contact Info) Description 09/05/2021 Refill [place] [facility] [address], [address] [place] [address] Twila Obregon MD [address] [facility] [address] [place] [address] Social History Tobacco Use Types [...] documented as of this encounter Care Teams Automatic Screwmaker Relationship Specialty Start Date End Date Chanda Meek PA [address] [place], [place] [address] PCP - General 05/07/21 documented as of this encounter
--- OUTSIDE RECORDS SUMMARY | 2025-02-09 14:22 | XMS_ITS | Clinical Summary ---
Author Organization Healthcare Address [address] [place] [address] Care Team Providers Care Senior Product Engineer Name Role Phone Destinee Meekie Elisa OBRIEN Primary Care Provider [phone] Allergies No known active allergies Medications Melatonin [...] SDOH Screenings 2022 [facility]-Adult SDOH Screenings 2022 [id number] Vaccine (1 - 2024- season) 2024 [facility]-Influenza [...] patient's age to complete this topic Insurance [facility] MEDICAID Care Teams Senior Product Engineer Relationship Specialty Start Date End Date Chanda Meek PA [address] [place] [address] PCP - General 05/07/21
--- NOTE | 2025-02-09 14:30 | US_ITS ---
PROCEDURE: US OB FOLLOW UP CLINICAL INDICATION: growth COMPARISON: US US OB /MATERNAL DETAIL from 10/13/2024 US US OB BIOPHYSICAL PROFILE from 01/07/2025 FINDINGS: Transabdominal sonographic images of the pelvis were obtained. The following parameters are obtained: From her established due date she is 37weeks 1day Viable fetus in the cephalic presentation with a right lateral posterior placenta grade 2. The cervix measures 4.19 cm in length heart rate: 144bpm bpm. Average ultrasound age 38 weeks 0 days Estimated weight 3306 grams, 7 lb 5 oz BPD: 37weeks 4days, 75 percentile HC: 39weeks 0 days, 67 percentile AC: 38weeks 0 days, 83 percent FL: 37weeks 2days, 51 percent HC/AC: 1 FL/BPD: 0.79 FL/AC: 0.21 Growth percentile: 74 Amniotic fluid: MVP 4.46 cm No obvious anomalies evident. Stomach, bladder, kidneys, three-vessel cord, four chamber heart appear normal. IMPRESSION: 1. Viable fetus in the cephalic presentation with a right lateral posterior placenta grade 2. 2. Fluid is within normal limits with an MVP 4.46 cm. 3. There has been good interval growth with the fetus currently 74th percentile. 4. Limited anatomical scan appears normal. Dictated by: William Mahmood MD 02/09/2025 16:39 William Mahmood MD in [facility] 02/09/2025 16:39
== END 2025-02-09 23:59 | disposition home or self-care (01) ==
LOC: RAD 14:20
PROVIDERS: PCP Physician Assistant; Visit Provider Obstetrics & Gynecology
DX: O36.63X0 Maternal care for excessive fetal growth, third trimester, not applicable or unspecified (principal); Z3A.37 37 weeks gestation of pregnancy
CPT/HCPCS: 76816

== ENCOUNTER 2025-02-22 14:11 | Inpatient (IN) | payer MEDICAID, SELFPAY ==
[2025-02-21 17:58] LABS: Hematocrit 30.1 % (37.0-47.0); Hemoglobin 10.0 g/dL (12.2-16.2); Immature Granulocytes % 0.3 %; Mean Corpuscular HGB Conc 33.2 g/dL (31.8-35.4); Mean Corpuscular Hemoglobin 28.2 pg (27.0-31.2); Mean Corpuscular Volume 85.0 fl (81-99); Nucleated Red Blood Cells % 0 %; Platelet Count 173 K/mm3 (142-424); Red Blood Count 3.54 M/mm3 (4.20-5.40); Red Cell Distribution Width-SD 38.4 fL; White Blood Count 7.5 K/mm3 (4.5-13.0)
[2025-02-21 18:19] VITALS: BP 132/83; PULSE 77; RESP 18; TEMP 36.9; O2SAT 99; BMI 30.4
[2025-02-21 20:19] LABS: Microscopic, Urine URINE MICROSCOPIC (MICROSCOPIC)
[2025-02-21 20:44] LABS: Bilirubin,Urine Negative (Negative); Color,Urine YELLOW (Yellow); Glucose,Urine (UA) Negative (Negative); Ketones,Urine Negative (Negative); Leukocyte Esterase,Urine 3+ (Negative); PH,Urine 7.0 (5.0-8.5); Protein,Urine Negative (Negative); Specific Gravity, Urine 1.015 (1.005-1.030); Urobilinogen,Urine 0.2 EU/dl (0.2)
[2025-02-21 21:25] LABS: Bacteria,Urine 3+ /lpf
[2025-02-22] MEDS: DEXTROSE 5%-LACTATED RINGERS 1,000 ML 125 ML IV ×2 (06:38→14:10)
[2025-02-22] MEDS: OXYTOCIN/RINGERS LACTATE 30 UNITS/500 ML BAG IV (06:39)
[2025-02-22 08:16] VITALS: BP 141/84; PULSE 95; RESP 16; TEMP 36.8; O2SAT 95
--- NOTE | 2025-02-22 09:36 | EXP.HP ---
History of Present Illness *Admission Date: 02/21/25 *Reason for visit:: induction *History of present illness: Marija Bravo is a very pleasant 19-year-old G1, P0 who presents today for an elective induction of labor. Her has been relatively uncomplicated. On arrival she endorses good movement, denies any contractions, leakage of fluid, or vaginal bleeding. She received Cytotec overnight. She is currently on Pitocin and doing very well. Reports that she desires an epidural A+, antibody negative, rubella immune, hepatitis B negative, hepatitis C negative, RPR negative, HIV negative 1 hour GTT: 125 GBS negative PFSH PFS Disclaimer: The information contained in this section may have been updated after the patient was seen, as this information can be updated by other users. Medical History Large for gestational age fetus affecting management of mother Depression Asthma Gastroesophageal reflux disease Anxiety Surgical History History of surgery on arm History of placement of ear tubes Hx of adenoidectomy Hx of eye surgery Family History Other No significant family history Social History Smoking Status: Never smoker alcohol intake: never substance use type: denies use current occupational status: employed Travel in the last 8 weeks?: None household members: family housing: house Have you lived/traveled outside US in past 30 days?: No Contact w/someone who lives/traveled outside US past 30 days?: No Exposure to someone with infectious disease in past 14 days?: No Do you have a fever (greater than 100.4 F or 38 C)?: No Have you tested positive for COVID-19?: No Exposed to someone with COVID-19 in past 14 days?: No Do you have a sore throat?: No Do you have a cough?: No Do you have any weakness?: No Do you have any diarrhea?: No Are you experiencing any unusual bleeding?: No Do you have any muscle aches/pain?: No Do you have any abdominal pain?: No Are you experiencing loss of taste or smell?: No Other Medical History Have you received the Flu Vaccine for this season: No Have you received the Pneumonia Vaccine: No Review of Systems Review of Systems Review of systems (narrative): Review of Systems Constitutional: Denies fever, chills, and sweats Eyes: Denies vision change/ pain Respiratory: Denies cough and shortness of breath Cardiovascular: Denies chest pain and lightheadedness Gastrointestinal: Admits abdominal pain with contractions. Denies nausea, vomiting. Genitourinary: Denies dysuria and incontinence Musculoskeletal: Denies shoulder pain and back pain Neurological: Denies change in speech or headaches Meds Home Medications and Allergies Home Medications ?Medication ?Instructions ?Recorded ?Confirmed ?Type vits no.126-ferrous fum tab PO 07/22/24 02/15/25 History 28 mg iron-folic acid 800 mcg tablet (Classic ) ondansetron 4 mg disintegrating 4 mg PO Q8H PRN nausea and 08/19/24 02/15/25 Rx tablet vomiting #90 tabs New Prescriptions to Start Prescriptions: Allergies Allergy/AdvReac Type Severity Reaction Status Date / Time No Known Allergies Allergy Verified 02/15/25 08:58 Exam Data for Last 24 hours Vital signs and Labs for Last 24 Hours: Temp Pulse Resp BP Pulse Ox O2 Del Method 98.5 F 77 18 132/83 99 Room Air 02/21/25 18:19 02/21/25 18:19 02/21/25 18:19 02/21/25 18:19 02/21/25 18:19 02/21/25 18:19 Laboratory Results - last 24 hr 02/21/25 17:43: WBC 7.5, RBC 3.54 L, Hgb 10.0 L, Hct 30.1 L, MCV 85.0, MCH 28.2, MCHC 33.2, RDW 12.7, Plt Count 173, MPV 9.8, Neut % (Auto) 72.7, Lymph % (Auto) 21.6, [place] % (Auto) 5.1, Eos % (Auto) 0.0 L, Baso % (Auto) 0.3, Neut # (Auto) 5.5, Lymph # (Auto) 1.6, [place] # (Auto) 0.4, Eos # (Auto) 0.0, Baso # (Auto) 0.0, Blood Type A Positive, Antibody Screen Negative 02/21/25 17:58: Urine Color Yellow, Urine Appearance Clear, Urine pH 7.0, Ur Specific [place] 1.015, Urine Protein Negative, Urine Glucose (UA) Negative, Urine Ketones Negative, Urine Blood Negative, Urine Nitrate Negative, Urine Bilirubin Negative, Urine Urobilinogen 0.2, Ur Leukocyte Esterase 3+ A, Urine RBC None, Urine WBC 10-20, Ur Squamous Epith Cells 10-20, Urine Bacteria 3+ I & O for Last 24 hours: Intake & Output 02/19/25 02/20/25 02/21/25 02/22/25 23:59 23:59 23:59 23:59 Weight 183 lb Narrative: General: patient is alert oriented in no acute distress and responds appropriately to questions. HEENT: NCAT, EOMI, moist mucous membranes, neck supple with full ROM Cardiovascular: RRR +S1/S2, no murmurs or rubs Pulmonary: Clear to auscultation bilaterally, nonlabored breathing, symmetric chest rise Abdominal: Gravid abdomen appropriate for gestation. No guarding, rebound, or tenderness noted. Extremities: trace edema, no tenderness or cyanosis noted Skin: Normal turgor, intact, warm. Negative for erythema, pallor, petechia, or lesions Neurologic: Negative for sensory or motor deficit Psychiatric: Normal affect, normal thought process, good judgment and insight, no depression or anxious mood appreciated. *Routine HEENT Exam Head: Present normocephalic and atraumatic Eye: Present EOMI, PERRL and normal accommodation; Absent conjunctival icterus, scleral injection, nystagmus or exophthalmos ENT: Present mucous membranes moist *Routine Respiratory Exam Respiratory: Present CTA bilaterally, normal respiratory effort, able to speak in complete sentences and symmetric chest movement; Absent accessory muscle use, decreased breath sounds, rales, respiratory distress, wheezes, distant breath sounds or diminished air movement *Routine Cardiovascular Exam Cardiovascular: Present RRR, Normal S1 and Normal S2; Absent murmur or gallop *Routine Abdominal Exam Abdominal: Present soft and normoactive bowel sounds; Absent tenderness, distended, rebound or guarding *Routine Rectal Exam Rectal:: deferred *Routine Genitalia Exam Genitalia:: normal female Assessment and Plan *Assessment and plan (1) Large for gestational age fetus affecting management of mother: Status: Acute Category: Medical Code(s): O36.60X0 - Maternal care for excessive growth, unspecified trimester, not applicable or unspecified (2) : Status: Acute Qualifiers: Weeks of gestation: 29 weeks Qualified Code(s): Z3A.29 - 29 weeks gestation of Category: Medical Code(s): Z34.90 - Encounter for supervision of normal , unspecified, unspecified trimester (3) Encounter for induction of labor: Status: Acute Category: Medical Code(s): Z34.90 - Encounter for supervision of normal , unspecified, unspecified trimester Plan - Monitor vitals - Admit to L&D for induction of labor - Plan for induction with 25mcg of vaginal cytotec [id number] per protocol - Plan for augmentation of labor with AROM and pitocin if required. - External FHR and TOCO monitor - Exam this mornin/60/-3/midposition/firm consistency. Pitocin started and continued at 3. AROM, patient and infant tolerated well, clear fluid. - GBS neg/ Blood type: A+ - Hemoglobin: 10.0, Plt: 173 - Plan for epidural anesthesia - Anticipate vaginal delivery of male infant: Isidoro Armendariz IUPC placed around 1300 for better elevated trace patient's contractions
[2025-02-22 10:08] VITALS: TEMP 36.8
[2025-02-22] MEDS: LACTATED RINGERS 1000ML 1,000 ML 999 ML IV (10:16)
--- NOTE | 2025-02-22 11:07 | P.PNANES_ITS ---
[facility] Disclaimer: The information contained in this section may have been updated after the patient was seen, as this information can be updated by other users. Medical History Large for gestational age fetus affecting management of mother Depression Asthma Gastroesophageal reflux disease Anxiety Surgical History History of surgery on arm History of placement of ear tubes Hx of adenoidectomy Hx of eye surgery Family History Other No significant family history Social History Smoking Status: Never smoker alcohol intake: never substance use type: denies use current occupational status: employed Travel in the last 8 weeks?: None household members: family housing: house Have you lived/traveled outside US in past 30 days?: No Contact w/someone who lives/traveled outside US past 30 days?: No Exposure to someone with infectious disease in past 14 days?: No Do you have a fever (greater than 100.4 F or 38 C)?: No Have you tested positive for COVID-19?: No Exposed to someone with COVID-19 in past 14 days?: No Do you have a sore throat?: No Do you have a cough?: No Do you have any weakness?: No Do you have any diarrhea?: No Are you experiencing any unusual bleeding?: No Do you have any muscle aches/pain?: No Do you have any abdominal pain?: No Are you experiencing loss of taste or smell?: No [facility] Anesthesia Checklist Patient Identification Patient Identification: Arm Band and Verbal (Name & ) Structural Data Admitted From: Inpatient Planned Operative Procedure/s: Labor Epidural Consent for Planned Operative Procedure(s) Verified: Yes Verified Documents: Surgical Consent NPO Status Verified Time NPO: 00:00 Chart Verification Results Verified: CBC and BMP Additional verifications Patient : Yes Anesthesia Reactions: No Hx Blood Transfusions: No Blood Transfusion Reaction: No Airway Assessment Mallampati Score:: Class II C-Spine Mobility Assessed: Yes TMJ Mobility Assessed: Yes Dentition: Good Dentition Neurological Assessment Level of Consciousness: Awake, Alert and Appropriate Hx Seizures: No Numbness or tingling in extremities: No Anesthesia Plan Anesthesia Risk discussed: Yes Anesthesia Plan: Verified ASA Class: II Anesthesia Type: Epidural
[2025-02-22 12:30] VITALS: TEMP 36.9
[2025-02-22 14:30] VITALS: TEMP 36.8
[2025-02-22 15:29] LABS: RPR W/RFX Titers Nonreactive (Nonreactive)
[2025-02-22 16:08] VITALS: PULSE 86; RESP 16; TEMP 36.9; O2SAT 100
[2025-02-22] MEDS: OXYTOCIN/RINGERS LACTATE 30 UNITS/500 ML BAG 999 UNITS IV (17:55)
--- NOTE | 2025-02-22 18:00 | PC.NURSE ---
RESP CARE NOTE: Cord Blood PH reported to ABLAKE at this time along with base excess. Venous BE -6. Arterial BE -6.5
--- NOTE | 2025-02-22 18:42 | P.PCN_ITS ---
Delivery Note Delivery Date:: 02/22/25 Delivery Time:: 17:51 Anesthesia Type: Epidural Was labor medically induced?: Yes Induction method: per misoprostol protocol Gestational age (weeks): 39 Infant delivered prior to 39 weeks?: No Gender: Male at 1 minute: 4 at 5 minutes: 6 Delivery Procedure:: Preoperative diagnosis: 1. at 39 completed this weeks gestation, vertex 2. Rh positive 3. GBS negative Postoperative diagnosis: 1. at 39 completed this weeks gestation, vertex 2. Rh positive 3. GBS negative 4. Shoulder Dystocia EBL: 350mL Specimen: 1. Cord blood 2. Arterial and venous cord gases 3. Placenta Findings: 1. Liveborn viable male : Marcello Rubin. Apgars 4, 6, and 7 at 1 and 5 minutes respectively. Weight: 8 pounds 2 ounces 2. 2nd degree midline perineal laceration Complications: Shoulder dystocia Procedure: Nonoperative spontaneous vaginal delivery Marija Bravo is a 19yo who presented for elective induction of labor. She received Cytotec overnight and Pitocin was started this morning followed by AROM. has been uncomplicated. Patient had artificial rupture membranes around 9 this morning, clear fluid. She received an epidural for anesthesia. She progressed to complete. FHT were reassuring throughout labor with accelerations during pushing. The was noted to be in NICOLA position. With effective maternal pushing there was a nonoperative spontaneous vaginal delivery at 1751. There was no nuchal cord. There was a shoulder dystocia. It was immediately recognized the patient was placed in Torie position. Suprapubic pressure was applied. Shoulder dystocia was relieved with delivery of the posterior left arm after about 60 to 90 seconds, nursing documentation to be reviewed. The body and lower extremities delivered without difficulty. The umbilical cord was immediately doubly clamped and cut and sent to the warmer for evaluation. Arterial and venous cord gases were collected. Cord blood was collected and sent for routine testing. The placenta delivered with cord traction and ariza prapubic contertraction. Pitocin was started. The uterus was firm and bleeding was minimal. The perineum, vaginal briseno, cervix, and paraurethral area were inspected thoroughly. There was a second-degree midline perineal laceration. 1% Lidocaine, 10ml, was injected during the repair due to patient discomfort. The laceration was repaired in the usual fashion using 2-0 Vicryl suture. The laceration was hemostatic. The cervix and vaginal briseno were inspected and noted to be hemostatic. This concluded the delivery. The patient was counseled regarding the events of the delivery and repair. The patient tolerated the delivery well. All counts were correct by nursing. Mother and infant were doing well and bonding upon my leaving the delivery room. Following delivery the was being closely monitored for tachycardia and apneic episodes, see peds note. is being transfered for NICU support Placental Delivery Description: Spontaneous
--- NOTE | 2025-02-22 19:10 | EXP.DC.SUM ---
General Admission date:: 02/22/25 Discharge date: 02/22/25 HPI HPI HPI: Marija Bravo is a very pleasant 19-year-old G1, P0 who presents today for an elective induction of labor. Her has been relatively uncomplicated. On arrival she endorses good movement, denies any contractions, leakage of fluid, or vaginal bleeding. She received Cytotec overnight. She is currently on Pitocin and doing very well. Reports that she desires an epidural A+, antibody negative, rubella immune, hepatitis B negative, hepatitis C negative, RPR negative, HIV negative 1 hour GTT: 125 GBS negative Hospital Course Hospital Course Hospital Course: Marija Bravo is a 19yo PPD#0. She delivered a liveborn male infant, Marcello Rubin, weighing 8 pounds 2 ounces. She had Apgars of 4/6/7 at 1, 5 and 10 minutes. Delivery occurred on 02/22/25 at 1751. Delivery was complicated by a shoulder dystocia that was relived with delivery of the posterior arm. See peds note/ chart for full medical details reguarding infant NICU transfer. She has done well and has remained afebrile with her at her hospitalization. She is eating and drinking and ambulating. She plans to breast feed. Her lochia is appropriate for the immediate period. She has A Rh+ blood, she is rubella immune and was group B streptococcus negative. She will be discharged to for a compassionate care bed as the infant was transferred for NICU support. Pt will follow-up with Dr. Wick in 2 weeks time. She will continue with her vitamins. She will take ibuprofen as well. She was given the usual instructions with respect to limiting her activity, driving and sexual activity. She was given instructions with respect to wound care. Her condition on discharge is stable and improved. Exam Data for Last 24 hours Vital signs and Labs for Last 24 Hours: Temp Pulse Resp BP Pulse Ox O2 Del Method 98.2 F 95 H 16 141/84 H 95 Room Air 02/22/25 14:30 02/22/25 08:16 02/22/25 08:16 02/22/25 08:16 02/22/25 08:16 02/22/25 08:16 Laboratory Results - last 24 hr 02/21/25 17:43: RPR w/Rflx to Titer Nonreactive 02/21/25 17:58: Urine Color Yellow, Urine Appearance Clear, Urine pH 7.0, Ur Specific [place] 1.015, Urine Protein Negative, Urine Glucose (UA) Negative, Urine Ketones Negative, Urine Blood Negative, Urine Nitrate Negative, Urine Bilirubin Negative, Urine Urobilinogen 0.2, Ur Leukocyte Esterase 3+ A, Urine RBC None, Urine WBC 10-20, Ur Squamous Epith Cells 10-20, Urine Bacteria 3+ I & O for Last 24 hours: Intake & Output 02/19/25 02/20/25 02/21/25 02/22/25 23:59 23:59 23:59 23:59 Intake Total 417 / Balance 417 / Weight 183 lb Narrative: General: patient is alert oriented in no acute distress and responds appropriately to questions. Appears to be in minimal pain. Sitting up in the chair and doing well HEENT: NCAT, EOMI, moist mucous membranes, neck supple with full ROM Cardiovascular: RRR +S1/S2, no murmurs or rubs Pulmonary: Clear to auscultation bilaterally, nonlabored breathing, symmetric chest rise Abdominal: Fundus 2 above the umbilicus, firm, and tenderness appropriate for the period. Bladder emptied with straight cath and uterus at umbilicus Extremities: trace edema, no tenderness or cyanosis noted Skin: Normal turgor, intact, warm. Negative for erythema, pallor, petechia, or lesions Neurologic: Negative for sensory or motor deficit Psychiatric: Normal affect, normal thought process, good judgment and insight, no depression or anxious mood appreciated. Results Data Completed and Pending Labs on day of discharge: Labs from last 24 hours 02/21/25 02/21/25 17:58 17:43 Urine Color Yellow Urine Appearance Clear Urine pH 7.0 Ur Specific [place] 1.015 Urine Protein Negative Urine Glucose (UA) Negative Urine Ketones Negative Urine Blood Negative Urine Nitrate Negative Urine Bilirubin Negative Urine Urobilinogen 0.2 Ur Leukocyte Esterase 3+ A Urine RBC None Urine WBC 10-20 Ur Squamous Epith Cells 10-20 Urine Bacteria 3+ RPR w/Rflx to Titer Nonreactive DS: Diagnosis Discharge Diagnosis (1) Large for gestational age fetus affecting management of mother: Status: Acute Code(s): O36.60X0 - Maternal care for excessive growth, unspecified trimester, not applicable or unspecified (2) : Status: Acute Code(s): Z34.90 - Encounter for supervision of normal , unspecified, unspecified trimester Qualifiers: Weeks of gestation: 29 weeks Qualified Code(s): Z3A.29 - 29 weeks gestation of (3) Encounter for induction of labor: Status: Acute Code(s): Z34.90 - Encounter for supervision of normal , unspecified, unspecified trimester Meds Home Medications and Allergies Home Medications ?Medication ?Instructions ?Recorded ?Confirmed ?Type vits no.126-ferrous fum 1 tab PO DAILY 07/22/24 02/22/25 History 28 mg iron-folic acid 800 mcg tablet (Classic ) New Prescriptions to Start Prescriptions: Allergies Allergy/AdvReac Type Severity Reaction Status Date / Time No Known Allergies Allergy Verified 02/15/25 08:58 Discharge Plan Disposition Patient Disposition: Home, Self-Care Discharge Order Discharge Orders: Discharge Order (Routine); Ordered 02/22/25 Ordered By: Halley Wick Follow up Plan Prescriptions/Medication Reconciliation: Continued Classic 28 mg iron- 800 mcg tablet 1 tab PO DAILY Problem Reconciliation Problems Reviewed?: Yes Patient Discharge Instructions ACTIVITY: Continue current activity DIET: regular diet Additional Instructions: Congratulations on the delivery of your sweet baby boy. It is my privilege to be your doctor and I am so thankful I could be a part of your special day. Discharge: -Take 800 mg Ibuprofen every 8 hours as needed for pain. You can also take 500-1000 mg of Tylenol in between doses, every 6-8 hours. -Colace can be taken 1-2 times per day as you need to soften your stool. Make sure to drink at least 8 cups of water per day. -Iron supplements can make you constipated. You can take iron tablets every other day if constipation is too bad. -Nothing in the vagina for 6 weeks - no intercourse, douching, tampons. No tub baths or swimming pools. -Do not lift greater than 20pounds for 2 weeks, this is the equivalent of 2 gallons of milk. -Reasons to return to L&D or call On-Call doctor - fever (greater than 100.4) - heavy vaginal bleeding (soaking through 1 pad in less than 2 hours or passing clots that are egg sized) - vaginal discharge (malodorous and/or purulent) - severe headaches, leg tenderness/edema, or any other symptoms that warrant immediate medical attention. depression/blues - Normal to feel anxious/overwhelmed for first 2 weeks - Talk to your doctor if: anxiety lasts over 2 weeks, trouble bonding with baby, withdrawing from other family members, thoughts of harming yourself or others Halley Wick DO [facility] [phone] *Nothing in the Vagina for 6 weeks* *No strenuous activity* *No heavy lifting* *No tub baths until okay's by MD* Print Language: Lao Providers Primary Care Provider: Chanda Meek Admit Provider: Elisha Lucero Attending Provider: Elisha Lucero
[2025-02-22] MEDS: IBUPROFEN 400 MG TABLET 800 MG PO (20:18)
[2025-02-22] MEDS: ACETAMINOPHEN 500MG TAB 1000 MG PO (20:19)
== END 2025-02-22 23:35 | disposition home or self-care (01) | DRG 807 ==
LOC: OBOUT 14:11 → OB 14:11
PROVIDERS: Obstetrics & Gynecology; Admitting Provider Obstetrics & Gynecology; PCP Physician Assistant; Visit Provider Obstetrics & Gynecology
DX: O36.63X0 Maternal care for excessive fetal growth, third trimester, not applicable or unspecified (principal); Z37.0 Single live birth; Z3A.39 39 weeks gestation of pregnancy; O66.0 Obstructed labor due to shoulder dystocia; O70.1 Second degree perineal laceration during delivery; Z23 Encounter for immunization
CPT/HCPCS: 36415; 51702; 59025; 62323; 81001; 82800; 85025; 86592; 86850; 87086; 94761; C1758; J7120; J7121